=== PATIENT | female | born 1975 | race American Indian/Alaskan Native ===

== ENCOUNTER 2020-09-09 18:56 | Emergency (ER) | payer SELFPAY ==
[2020-09-10 00:04] LABS: Basophils # (Auto) 0.1 K/mm3 (0.0-0.1); Basophils % (Auto) 1.9 % (0.0-1.8); Eosinophils # (Auto) 0.1 K/mm3 (0.0-0.4); Eosinophils % (Auto) 1.8 % (0.0-4.3); Hemoglobin 10.7 gm/dl (10.1-14.3); Lymphocytes # (Auto) 2.3 K/mm3 (1.2-5.4); Lymphocytes % (Auto) 48.9 % (13.4-35.0); Mean Corpuscular HGB Conc 32 % (30-34); Mean Corpuscular Volume 75 fl (79-97); Monocytes # (Auto) 0.4 K/mm3 (0.0-0.8); Monocytes % (Auto) 8.2 % (0.0-7.3); Platelet Count 290 K/mm3 (140-440); Red Blood Count 4.39 M/mm3 (3.65-5.03); Red Cell Distribution Width 17.9 % (13.2-15.2)
[2020-09-10 00:11] LABS: Alanine Aminotransferase 16 units/L (7-56); Blood Urea Nitrogen 18 mg/dL (7-17); Hemolysis Index 3
[2020-09-10 00:13] LABS: BUN/Creatinine Ratio 30
[2020-09-10 07:27] VITALS: BP 96/68
--- NOTE | 2020-09-10 08:17 | Emergency Department Report ---
ED Psych HPI - General Chief Complaint: Medical Clearance Stated Complaint: DEHYDRATION Time Seen by Provider: 09/10/20 08:09 Source: patient, family Mode of arrival: Stretcher - History of Present Illness Initial Comments: This is an inpatient at [facility], 45 years old with a history of paranoid schizophrenia and depression. She is sent to this facility for evaluation of her hydration status. Apparently she has not been eating well at [facility]. Patient herself states that "I ate yesterday". She states that she would drink water for me now. I received a call from a family member related to her who identified herself as a physician at [facility]. The was also on the line. They state that the reason why the patient is not eating is she prefers Somali food. They state that they have had difficulty communicating with the psychiatry staff at [facility]. They also state that Dr. Ho the patient's personal psychiatrist is involved. They state that he has not been able to successfully communicate with [facility] staff as well. They also state that due to the Covid visitor policy they have not been able to see the patient for 4 days. They expressed a desire to take the patient home. They state that she will also not take her medicine if she does not get Somali food. They state that she is under 1013 status. They would like me to send the patient home. They did mention taking legal recourse if the patient is not released but did not at all direct that asked me. I explained to them that I can examine the patient medi robert. Generally, it would be up to the psychiatrist at [facility] to release the patient from a 1013 status. I stated that I would attempt to speak to the psychiatrist myself concerning her status. They appeared to be satisfied with that plan. Complaint: other -: week(s) (Inpatient at [facility] x1 week per family) Associated Psychiatric Symptoms: other (Question paranoid ideation) History of same: Yes (Paranoid schizophrenia) Quality: other (Unknown) Improves With: none Worsens With: none Context: not taking psychiatric (Possibly not) Associated Symptoms: denies other symptoms (Patient has adequate Yakut enough to deny thoughts of self-harm or harming others) Treatments Prior to Arrival: other (Inpatient at [facility]) - Related Data Allergies Allergy/AdvReac Type Severity Reaction Status Date / Time No Known Allergies Allergy Unverified 09/09/20 23:22 ED Review of Systems ROS: Stated complaint: DEHYDRATION Other details as noted in HPI Comment: All other systems reviewed and negative (Limited review but patient denies any complaint) ED Past Medical Hx - Past Medical History Previous Medical History?: Yes Hx Psychiatric Treatment: Yes (Depression, Paranoid Schizophrenia) - Surgical History Past Surgical History?: No - Social History Smoking Status: Never Smoker Substance Use Type: None ED Physical Exam - General Limitations: No Limitations General appearance: alert, in no apparent distress, other (Very asthenic pat ient) - Head Head exam: Present: atraumatic, normocephalic - Eye Eye exam: Present: normal appearance. Absent: scleral icterus - ENT ENT exam: Present: mucous membranes moist - Neck Neck exam: Present: normal inspection. Absent: tenderness, meningismus - Respiratory Respiratory exam: Present: normal lung sounds bilaterally. Absent: respiratory distress - Cardiovascular Cardiovascular Exam: Present: regular rate, normal rhythm. Absent: systolic murmur, diastolic murmur, rubs, gallop - GI/Abdominal GI/Abdominal exam: Present: soft, normal bowel sounds. Absent: distended, tenderness, guarding, rebound, rigid - Extremities Exam Extremities exam: Present: normal inspection - Back Exam Back exam: Present: normal inspection - Neurological Exam Neurological exam: Present: alert, oriented X3, CN II-XII intact, normal gait. Absent: motor sensory deficit - Psychiatric Psychiatric exam: Present: normal mood, flat affect - Skin Skin exam: Present: warm, dry, intact, normal color. Absent: rash - Other Other exam information: Patient was fully ambulatory about the emergency department. I asked her if she would drink some water. I brought her a cup. We will see if she is taking f luids here. It does not appear necessary to initiate IV fluids based on her clinical status. I am attempting to speak to her psychiatrist at [facility]. ED Course Vital Signs 09/09/20 09/10/20 22:40 07:26 Temperature 98.8 F 97.7 F Pulse Rate 91 H 69 Respiratory 18 13 Rate Blood Pressure 96/61 96/68 O2 Sat by Pulse 100 100 Oximetry - Reevaluation(s) Reevaluation #1: Patient is medically clear for continued psychiatric hospitalization. I did talk to the psychiatrist at [facility]. They stated that they would communicate with Dr. Márquez and formulate a plan. Discharged with obviously be a psychiatric decision. 09/10/20 08:35 ED Medical Decision Making - Lab Data Result diagrams: 09/09/20 23:27 09/09/20 23:27 Critical care attestation.: If time is entered above; I have spent that time in minutes in the direct care of this critically ill patient, excluding procedure time. ED Disposition Clinical Impression: Medical clearance for psychiatric admission Schizophrenia Qualifiers: Schizophrenia type: paranoid schizophrenia Qualified Code(s): F20.0 - Paranoid schizophrenia Disposition: DC-01 TO HOME OR SELFCARE Is pt being admited?: No Does the pt Need Aspirin: No Condition: Stable Instructions: Supporting Someone With Schizophrenia Additional Instructions: Further psychiatric care per [facility] psychiatric staff and private outpatient psychiatry. Referrals: PRIMARY CARE, [Primary Care Provider] - 3-5 Days Time of Disposition: 08:38
== END 2020-09-10 09:40 | disposition home or self-care (01) ==
LOC: ED 18:56
DX: F20.0 Paranoid schizophrenia (principal); Z00.8 Encounter for other general examination
CPT/HCPCS: 36415; 80053; 84703; 85025